=== PATIENT | female | born 1995 | race Two or more races ===

== ENCOUNTER 2019-05-09 14:37 | Inpatient (IN) | payer OTHER ==
[2019-05-09] MEDS ORDERED: Sodium Chloride 0.9% 2.5 ML Syringe FLUSH PRN (15:01)
[2019-05-09] MEDS ORDERED: Sodium Chloride 0.9% 10 ML Syringe FLUSH PRN (15:01)
[2019-05-09] MEDS ORDERED: Nalbuphine 10 MG/1 ML Vial IVPUSH PRN (15:01)
[2019-05-09] MEDS ORDERED: Misoprostol 200 MCG Tab PO PRN (15:01)
[2019-05-09] MEDS ORDERED: Sodium Chloride 0.9% 10 ML SDV IV PRN (15:01)
[2019-05-09] MEDS ORDERED: Lidocaine 1% 50 ML MDV INJECT PRN (15:01)
[2019-05-09] MEDS ORDERED: Methylergonovine 0.2 MG/1 ML Amp IM PRN (15:01)
[2019-05-09] MEDS ORDERED: Water For Irrigation,Sterile 1,000 ML Container IRR PRN (15:01)
[2019-05-09] MEDS ORDERED: Carboprost Tromethamine 250 MCG/1 ML Amp IM PRN (15:01)
[2019-05-09] MEDS ORDERED: Tranexamic Acid 1,000 MG in Sodium Chloride 0.9% 100 ML IV PRN (15:01)
[2019-05-09] MEDS ORDERED: Butorphanol 1 MG/ML SDV IVPUSH PRN (15:01)
[2019-05-09] MEDS ORDERED: Oxytocin/0.9 % Sodium Chloride 30 UNIT/500 ML BAG IV SCH (15:15)
[2019-05-09] MEDS: Lactated Ringers 1,000 ML IV SCH ×2 (18:20→19:36)
[2019-05-09] MEDS ORDERED: fentaNYL 100 MCG/2 ML SDV ONE (19:20)
[2019-05-09] MEDS ORDERED: Ropivacaine 0.2% 2 MG/ML 20 ML SDV ONE (19:20)
--- NOTE | 2019-05-09 20:14 | PCM.PREANE ---
Preanesthetic Assessment - Anesthesia/Transfusion/Family Hx Anesthesia History: Prior Anesthesia Without Reaction Family History of Anesthesia Reaction: No Transfusion History: No Prior Transfusion(s) Intubation History: Unknown - Review of Systems General: No Symptoms Pulmonary: No Symptoms Gastrointestinal: No Symptoms Neurological: No Symptoms Other: Reports: None - Physical Assessment Pulse: 85 O2 Sat by Pulse Oximetry: 99 Respiratory Rate: 22 Blood Pressure: 148/72 Temperature: 37 F Height: 5 ft 9 in Weight: 116.12 kg ASA Class: 2E Mental Status: Alert & Oriented x3 Airway Class: Mallampati = 2 Dentition: Reports: Normal Dentition ROM/Head Extension: Full Lungs: Clear to Auscultation, Normal Respiratory Effort Cardiovascular: Regular Rate, Regular Rhythm - Lab Values: Laboratory Last Values WBC 12.57 K/uL (4.0-11.0) H 05/09/19 15:22 RBC 4.53 M/uL (4.30-5.90) 05/09/19 15:22 Hgb 12.8 g/dL (12.0-16.0) 05/09/19 15:22 Hct 38.5 % (36.0-46.0) 05/09/19 15:22 MCV 85.0 fL (80.0-98.0) 05/09/19 15:22 MCH 28.3 pg (27.0-32.0) 05/09/19 15:22 MCHC 33.2 g/dL (31.0-37.0) 05/09/19 15:22 RDW Std Deviation 42.5 fl (28.0-62.0) 05/09/19 15:22 RDW Coeff of [place] 14 % (11.0-15.0) 05/09/19 15:22 Plt Count 150 K/uL (150-400) 05/09/19 15:22 MPV 11.40 fL (7.40-12.00) 05/09/19 15:22 Nucleated RBC % 0.0 /100WBC 05/09/19 15:22 Nucleated RBCs # 0 K/uL 05/09/19 15:22 INR 0.90 05/09/19 15:22 APTT 24.8 SEC (18.6-31.3) 05/09/19 15:22 Fibrinogen 451 mg/dL (215-411) H 05/09/19 15:22 Blood Type A NEGATIVE 05/09/19 15:22 Antibody Screen NEGATIVE 05/09/19 15:22 - Allergies Allergies/Adverse Reactions: Allergies Allergy/AdvReac Type Severity Reaction Status Date / Time Latex, Natural Rubber Allergy Itching Verified 07/06/16 19:58 - Blood Blood Available: No Product(s) Available: None - Anesthesia Plan Pre-Op Medication Ordered: None - Acknowledgements Anesthesia Type Planned: Epidural Pt an Appropriate Candidate for the Planned Anesthesia: Yes Alternatives and Risks of Anesthesia Discussed w Pt/Guardian: Yes Pt/Guardian Understands and Agrees with Anesthesia Plan: Yes PreAnesthesia Questionnaire - Past Health History Medical/Surgical History: Denies 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: Psychiatric History: Reports: Depression - Infectious Disease History Infectious Disease History: Reports: Chicken Pox - SUBSTANCE USE Smoking Status *Q: Never Smoker Second Hand Smoke Exposure: Yes Recreational Drug Use History: No - HOME MEDS Home Medications: Home Meds Birthcontrol 1 tab PO DAILY 09/01/15 [History] - CURRENT (IN HOUSE) MEDS Current Meds: Current Medications Butorphanol Tartrate (Stadol) 1 mg IVPUSH Q1H PRN PRN Reason: Pain Last Admin: 05/09/19 18:20 Dose: 1 mg Carboprost Tromethamine (Hemabate Ds) 250 mcg IM ASDIRECTED PRN PRN Reason: Post Hemorrhage Lactated Ringer's (Ringers, Lactated) 1,000 mls @ 150 mls/hr IV ASDIRECTED [facility] Last Admin: 05/09/19 19:36 Dose: 150 mls/hr Oxytocin/Sodium Chloride (Oxytocin 30 Unit/500 Ml-Ns) 30 unit in 500 mls @ 999 mls/hr IV TITRATE RAJINDER Tranexamic Acid 1,000 mg/ (Sodium Chloride) 110 mls @ 660 mls/hr IV ONETIME PRN PRN Reason: Bleeding Lidocaine HCl (Xylocaine 1%) 50 ml INJECT ONETIME PRN PRN Reason: Laceration repair Methylergonovine Maleate (Methergine) 0.2 mg IM ASDIRECTED PRN PRN Reason: Post Hemorrhage Misoprostol (Cytotec) 200 mcg PO ONETIME PRN PRN Reason: Post Hemorrhage Nalbuphine HCl (Nubain) 10 mg IVPUSH Q1H PRN PRN Reason: Pain (severe 7-10) Sodium Chloride (Saline Flush) 10 ml FLUSH ASDIRECTED PRN PRN Reason: Keep Vein Open Sodium Chloride (Saline Flush) 2.5 ml FLUSH ASDIRECTED PRN PRN Reason: Keep Vein Open Sodium Chloride (Normal Saline) 10 ml IV ASDIRECTED PRN PRN Reason: IV Use Sterile Water (Sterile Water For Irrigation) 1,000 ml IRR ASDIRECTED PRN PRN Reason: delivery Discontinued Medications Fentanyl (Sublimaze) Confirm Administered Dose 100 mcg .ROUTE .STK-MED ONE Stop: 05/09/19 19:21 Fentanyl/Bupivacaine HCl (Xyqixwes-Fxnjr-Hr 2 Mcg/Ml-0.125%) Confirm Administered Dose 100 mls @ as directed .ROUTE .STK-MED ONE Stop: 05/09/19 19:21 Ropivacaine (Naropin 0.2%) Confirm Administered Dose 20 ml .ROUTE .STK-MED ONE Stop: 05/09/19 19:21
[2019-05-10] MEDS ORDERED: oxyCODONE 5 MG Tab PO PRN (02:04)
[2019-05-10] MEDS ORDERED: Acetaminophen 500 MG Tab PO PRN ×2 (02:04)
[2019-05-10] MEDS ORDERED: Bisacodyl 10 MG Supp RECTAL PRN (02:04)
[2019-05-10] MEDS ORDERED: Lanolin 100% Cream 7 GM Tube TOP PRN (02:04)
[2019-05-10] MEDS ORDERED: Ibuprofen 400 MG Tab PO PRN (02:04)
[2019-05-10] MEDS ORDERED: Benzocaine/Menthol 20%-0.5% Spray 78 GM Cannister TOP PRN (02:04)
[2019-05-10] MEDS ORDERED: Witch Hazel Medicated Pads 40/Jar TOP PRN (02:04)
--- NOTE | 2019-05-10 02:09 | PCM.DEL ---
L & D Note - General Info Date of Service: 05/10/19 Mother's Due Date: 05/16/19 - Delivery Note Labor: Spontaneous Delivery Outcome: Livebirth Infant Delivery Method: Spontaneous Vaginal Delivery-Single Presentation: Left Occiput Anterior (KUMAR) Nuchal Cord: None Anesthesia Type: Epidural Amniotic Fluid Description: Meconium Stained Episiotomy Type: None Laceration: 1st Degree, Labial Suture type: Other (monocryl ) Suture size: 2-0 Placenta: Intact Cord: 3 Vessels Estimated Blood Loss: 350 Score 1 min: 8 Score 5 min: 9 Delivery Comments (Free Text/Narrative):: Live female delivered at 120am , 8/9 weight 3680g - General Info Date of Service: 05/10/19 - Patient Data Vitals - Most Recent: Last Vital Signs Temp 2.7 C L 05/09/19 20:14 Pulse 85 05/09/19 20:14 Resp 22 H 05/09/19 20:14 BP 148/72 H 05/09/19 20:14 Pulse Ox 99 05/09/19 20:14 Weight - Most Recent: 116.12 kg Lab Results Last 24 Hours: Laboratory Results - last 24 hr 05/09/19 05/09/19 05/09/19 Range/Units 15:22 15:22 15:22 WBC 12.57 H (4.0-11.0) K/uL RBC 4.53 (4.30-5.90) M/uL Hgb 12.8 (12.0-16.0) g/dL Hct 38.5 (36.0-46.0) % MCV 85.0 (80.0-98.0) fL MCH 28.3 (27.0-32.0) pg MCHC 33.2 (31.0-37.0) g/dL RDW Std Deviation 42.5 (28.0-62.0) fl RDW Coeff of [place] 14 (11.0-15.0) % Plt Count 150 (150-400) K/uL MPV 11.40 (7.40-12.00) fL Nucleated RBC % 0.0 /100WBC Nucleated RBCs # 0 K/uL INR 0.90 APTT 24.8 (18.6-31.3) SEC Fibrinogen 451 H (215-411) mg/dL Blood Type A NEGATIVE Antibody Screen NEGATIVE Med Orders - Current: Current Medications Carboprost Tromethamine (Hemabate Ds) 250 mcg IM ASDIRECTED PRN PRN Reason: Post Hemorrhage Lactated Ringer's (Ringers, Lactated) 1,000 mls @ 150 mls/hr IV ASDIRECTED RAJINDER Last Admin: 05/09/19 19:36 Dose: 150 mls/hr Oxytocin/Sodium Chloride (Oxytocin 30 Unit/500 Ml-Ns) 30 unit in 500 mls @ 999 mls/hr IV TITRATE RAJINDER Last Admin: 05/10/19 01:35 Dose: 999 mls/hr Tranexamic Acid 1,000 mg/ (Sodium Chloride) 110 mls @ 660 mls/hr IV ONETIME PRN PRN Reason: Bleeding Methylergonovine Maleate (Methergine) 0.2 mg IM ASDIRECTED PRN PRN Reason: Post Hemorrhage Misoprostol (Cytotec) 200 mcg PO ONETIME PRN PRN Reason: Post Hemorrhage Sodium Chloride (Saline Flush) 10 ml FLUSH ASDIRECTED PRN PRN Reason: Keep Vein Open Sodium Chloride (Saline Flush) 2.5 ml FLUSH ASDIRECTED PRN PRN Reason: Keep Vein Open Sodium Chloride (Normal Saline) 10 ml IV ASDIRECTED PRN PRN Reason: IV Use Discontinued Medications Butorphanol Tartrate (Stadol) 1 mg IVPUSH Q1H PRN PRN Reason: Pain Last Admin: 05/09/19 18:20 Dose: 1 mg Fentanyl (Sublimaze) Confirm Administered Dose 100 mcg .ROUTE .STK-MED ONE Stop: 05/09/19 19:21 Fentanyl/Bupivacaine HCl (Abdxduwk-Mdgln-Dh 2 Mcg/Ml-0.125%) Confirm Administered Dose 100 mls @ as directed .ROUTE .STK-MED ONE Stop: 05/09/19 19:21 Lidocaine HCl (Xylocaine 1%) 50 ml INJECT ONETIME PRN PRN Reason: Laceration repair Last Admin: 05/10/19 01:36 Dose: 50 ml Nalbuphine HCl (Nubain) 10 mg IVPUSH Q1H PRN PRN Reason: Pain (severe 7-10) Ropivacaine (Naropin 0.2%) Confirm Administered Dose 20 ml .ROUTE .STK-MED ONE Stop: 05/09/19 19:21 Sterile Water (Sterile Water For Irrigation) 1,000 ml IRR ASDIRECTED PRN PRN Reason: delivery - Problem List & Annotations (1) Vaginal delivery SNOMED Code(s): 162451602 Code(s): O80 - ENCOUNTER FOR FULL-TERM UNCOMPLICATED DELIVERY Status: Acute Current Visit: Yes - Problem List Review Problem List Initiated/Reviewed/Updated: Yes - My Orders Last 24 Hours: My Active Orders 05/09/19 15:01 Patient Status [ADT] Routine Heart Tones [RC] CONTINUOUS Non Stress Test [RC] PER UNIT ROUTINE May Shower [RC] ASDIRECTED Notify Provider [RC] PRN Up ad Gwendolyn [RC] ASDIRECTED Vaginal Exam [RC] PRN Vital Signs [RC] PER UNIT ROUTINE Carboprost Tromethamine [Hemabate DS] 250 mcg IM ASDIRECTED PRN Methylergonovine [Methergine] 0.2 mg IM ASDIRECTED PRN Sodium Chloride 0.9% [Normal Saline] 10 ml IV ASDIRECTED PRN Sodium Chloride 0.9% [Saline Flush] 10 ml FLUSH ASDIRECTED PRN Sodium Chloride 0.9% [Saline Flush] 2.5 ml FLUSH ASDIRECTED PRN Tranexamic Acid [Cyklokapron] 1,000 mg Sodium Chloride 0.9% [Normal Saline] 100 ml IV ONETIME miSOPROStol [Cytotec] 200 mcg PO ONETIME PRN Peripheral IV Insertion Adult [OM.PC] Routine 05/09/19 15:15 Lactated Ringers [Ringers, Lactated] 1,000 ml IV ASDIRECTED Oxytocin/0.9 % Sodium Chloride [Oxytocin 30 Unit/500 ML-NS] 30 unit in 500 ml IV TITRATE 05/10/19 02:04 Patient Status [ADT] Routine May Shower [RC] ASDIRECTED Up ad Gwendolyn [RC] ASDIRECTED Vital Signs [RC] PER UNIT ROUTINE RHIG WORKUP, [BBK] Routine Acetaminophen [Tylenol Extra Strength] 1,000 mg PO Q4H PRN Acetaminophen [Tylenol Extra Strength] 500 mg PO Q4H PRN Benzocaine/Menthol [Dermoplast Pain Relief 20%-0.5% [place]] 78 gm TOP ASDIRECTED PRN Bisacodyl [Dulcolax] 10 mg RECTAL ONETIME PRN Docusate Sodium [Colace] 100 mg PO BID PRN Ibuprofen [Motrin] 400 mg PO Q4H PRN Ibuprofen [Motrin] 800 mg PO Q6H PRN Lanolin [Lansinoh HPA] See Dose Instructions TOP ASDIRECTED PRN Witch Emma [Tucks] 1 pad TOP ASDIRECTED PRN oxyCODONE 5 mg PO Q2H PRN Assess Lochia [WOMSER] Per Unit Routine Assess Uterine Involution [WOMSER] Per Unit Routine Peripheral IV Discontinue [OM.PC] Routine 05/10/19 02:05 BLOOD GAS ARTERIAL UMBILICAL [BG] Routine BLOOD GAS VENOUS UMBILICAL [BG] Routine 05/11/19 05:11 HEMOGLOBIN/HEMATOCRIT,HH [HEME] Timed
[2019-05-10] MEDS: Ibuprofen 800 MG Tab PO PRN ×4 (02:57→20:54)
[2019-05-10] MEDS: Docusate Sodium 100 MG Cap PO PRN ×3 (02:58→20:54)
--- NOTE | 2019-05-10 10:55 | PCM.POSTAN ---
POST ANESTHESIA ASSESSMENT - MENTAL STATUS Mental Status: Alert, Oriented - RESPIRATORY Respiratory Status: Respiratory Rate WNL, Airway Patent, O2 Saturation Stable - CARDIOVASCULAR CV Status: Pulse Rate WNL, Blood Pressure Stable - GASTROINTESTINAL GI Status: No Symptoms - POST OP HYDRATION Hydration Status: Adequate & Stable
--- NOTE | 2019-05-11 03:55 | OR ---
SURGEON: NERI THOMAS DATE OF PROCEDURE: 05/10/2019 PREOPERATIVE DIAGNOSIS: 23yo G1, P0 at 39w1d Suspected placental abruption. POSTOPERATIVE DIAGNOSIS: 23yo G1, P0 at 39w1d Suspected placental abruption. PROCEDURE PERFORMED: Normal spontaneous vaginal delivery Repair of first-degree vaginal laceration and Bilateral labial laceration. ESTIMATED BLOOD LOSS: 350. IV FLUIDS: Pitocin running. ANESTHESIA: Epidural. NOTES AND FINDINGS: Live female delivered at 1:20 a.m. scores were 8 and 9. Weight is 3680 g. BRIEF HISTORY: The patient was 39 weeks 0 day. She was complaining of bleeding and also was examined and noted to have some blood in the posterior fornix. She was also complaining of contractions As a result, the patient was counseled for augmentation of labor versus induction of labor. At this point, she was also complaining of contraction. PIH labs were done, which was pennie. She was sent to Labor and Delivery. The patient was being observed, she then made change. She was about 1 to 2 cm dilated. She became 4 cm dilated and subsequently became fully dilated. DESCRIPTION OF PROCEDURE: With the patient being fully dilated. She was encouraged to push with good pushing effort. She delivered the head subsequently by the anterior and posterior shoulder. The body of the was delivered. Delayed cord clamping was observed. The cord was clamped and cut. Then, the placenta was delivered via controlled cord traction. The perineum was inspected and noted to have a first- degree laceration, which was repaired in layers and also bilateral labial laceration which was repaired with 2-0 Monocryl. Bimanual exam was done and the cervix was sweeped and bimanual uterine massage was done. Hemostasis was noted. Normal bleeding was observed. The patient was left in the Labor and Delivery suite in stable condition. LLUVIA / LEONARDA /[id number] MTDMaciel
[2019-05-11] MEDS: Ibuprofen 800 MG Tab PO PRN ×2 (05:09→12:39)
--- NOTE | 2019-05-11 07:08 | PCM48HPAN ---
Post Anesthesia Note - EVALUATION WITHIN 48HRS OF ANESTHETIC Vital Signs in Normal Range: Yes Patient Participated in Evaluation: Yes Respiratory Function Stable: Yes Airway Patent: Yes Cardiovascular Function Stable: Yes Hydration Status Stable: Yes Pain Control Satisfactory: Yes Nausea and Vomiting Control Satisfactory: Yes Mental Status Recovered: Yes Pulse Rate: 87 SaO2: 94 Resp Rate: 16 Temperature: 97.8 F Blood Pressure: 120/68
[2019-05-11 07:42] VITALS: BP 127/71
--- NOTE | 2019-05-11 10:08 | PCM.PNPP ---
- General Info Date of Service: 05/11/19 Subjective Update: 23yo P1 s/p , ambulating , voiding and tolerating regular diet , Normal Lochia Functional Status: Reports: Pain Controlled, Tolerating Diet, Ambulating, Urinating - Review of Systems General: Reports: No Symptoms HEENT: Reports: No Symptoms Pulmonary: Reports: No Symptoms Cardiovascular: Reports: No Symptoms Gastrointestinal: Reports: No Symptoms Genitourinary: Reports: No Symptoms Musculoskeletal: Reports: No Symptoms Skin: Reports: No Symptoms Neurological: Reports: No Symptoms Psychiatric: Reports: No Symptoms - General Info Date of Service: 05/11/19 - Patient Data Vital Signs - Most Recent: Last Vital Signs Temp 36.3 C 05/11/19 07:18 Pulse 84 05/11/19 07:18 Resp 17 05/11/19 07:18 BP 127/71 05/11/19 07:18 Pulse Ox 97 05/11/19 07:18 Weight - Most Recent: 116.12 kg Lab Results - Last 24 Hours: Laboratory Results - last 24 hr 05/11/19 Range/Units 05:23 Hgb 11.3 L (12.0-16.0) g/dL Hct 35.1 L (36.0-46.0) % Med Orders - Current: Current Medications Acetaminophen (Tylenol Extra Strength) 500 mg PO Q4H PRN PRN Reason: Pain Acetaminophen (Tylenol Extra Strength) 1,000 mg PO Q4H PRN PRN Reason: Pain Last Admin: 05/10/19 17:24 Dose: 1,000 mg Benzocaine/Menthol (Dermoplast Pain Relief 20%-0.5% [place]) 78 gm TOP ASDIRECTED PRN PRN Reason: Perineal Comfort Measure Last Admin: 05/10/19 04:56 Dose: 1 canister Bisacodyl (Dulcolax) 10 mg RECTAL ONETIME PRN PRN Reason: Constipation Carboprost Tromethamine (Hemabate Ds) 250 mcg IM ASDIRECTED PRN PRN Reason: Post Hemorrhage Docusate Sodium (Colace) 100 mg PO BID PRN PRN Reason: Constipation Last Admin: 05/10/19 20:54 Dose: 100 mg Emollient Ointment (Lansinoh Hpa) 0 gm TOP ASDIRECTED PRN PRN Reason: Sore Nipples Lactated Ringer's (Ringers, Lactated) 1,000 mls @ 150 mls/hr IV ASDIRECTED [facility] Last Admin: 05/09/19 19:36 Dose: 150 mls/hr Oxytocin/Sodium Chloride (Oxytocin 30 Unit/500 Ml-Ns) 30 unit in 500 mls @ 999 mls/hr IV TITRATE [facility] Last Admin: 05/10/19 01:35 Dose: 999 mls/hr Tranexamic Acid 1,000 mg/ (Sodium Chloride) 110 mls @ 660 mls/hr IV ONETIME PRN PRN Reason: Bleeding Ibuprofen (Motrin) 400 mg PO Q4H PRN PRN Reason: Pain Ibuprofen (Motrin) 800 mg PO Q6H PRN PRN Reason: Pain Last Admin: 05/11/19 05:09 Dose: 800 mg Methylergonovine Maleate (Methergine) 0.2 mg IM ASDIRECTED PRN PRN Reason: Post Hemorrhage Misoprostol (Cytotec) 200 mcg PO ONETIME PRN PRN Reason: Post Hemorrhage Oxycodone HCl (Oxycodone) 5 mg PO Q2H PRN PRN Reason: Pain Sodium Chloride (Saline Flush) 10 ml FLUSH ASDIRECTED PRN PRN Reason: Keep Vein Open Sodium Chloride (Saline Flush) 2.5 ml FLUSH ASDIRECTED PRN PRN Reason: Keep Vein Open Sodium Chloride (Normal Saline) 10 ml IV ASDIRECTED PRN PRN Reason: IV Use Witch Emma (Tucks) 1 pad TOP ASDIRECTED PRN PRN Reason: comfort care Last Admin: 05/10/19 04:57 Dose: 1 tub Discontinued Medications Butorphanol Tartrate (Stadol) 1 mg IVPUSH Q1H PRN PRN Reason: Pain Last Admin: 05/09/19 18:20 Dose: 1 mg Fentanyl (Sublimaze) Confirm Administered Dose 100 mcg .ROUTE .STK-MED ONE Stop: 05/09/19 19:21 Fentanyl/Bupivacaine HCl (Zxxybmuy-Pzfqc-Cr 2 Mcg/Ml-0.125%) Confirm Administered Dose 100 mls @ as directed .ROUTE .STK-MED ONE Stop: 05/09/19 19:21 Lidocaine HCl (Xylocaine 1%) 50 ml INJECT ONETIME PRN PRN Reason: Laceration repair Last Admin: 05/10/19 01:36 Dose: 50 ml Nalbuphine HCl (Nubain) 10 mg IVPUSH Q1H PRN PRN Reason: Pain (severe 7-10) Ropivacaine (Naropin 0.2%) Confirm Administered Dose 20 ml .ROUTE .STK-MED ONE Stop: 05/09/19 19:21 Sterile Water (Sterile Water For Irrigation) 1,000 ml IRR ASDIRECTED PRN PRN Reason: delivery - Infant Interaction Support Person: Mother, Significant Other - Recovery Exam Fundal Tone: Firm Fundal Level: At Umbilicus Fundal Placement: Midline Lochia Amount: Scant Lochia Color: Rubra/Red Perineum Description: Intact, Minimal Bruising/Swelling Other Perinuem Description: first degree laceration and bilateral labial tear, right side not repaired Episiotomy/Laceration: Approximated Bladder Status: Voiding Urinary Elimination: Voided - Exam General: Alert HEENT: Pupils Equal Neck: Supple Lungs: Clear to Auscultation Cardiovascular: Regular Rate, Regular Rhythm GI/Abdominal Exam: Normal Bowel Sounds Extremities: Normal Inspection Neurological: No New Focal Deficit Psy/Mental Status: Alert - Problem List & Annotations (1) Vaginal delivery SNOMED Code(s): 090345839 Code(s): O80 - ENCOUNTER FOR FULL-TERM UNCOMPLICATED DELIVERY Status: Acute Current Visit: Yes - Problem List Review Problem List Initiated/Reviewed/Updated: No - Assessment Assessment:: 23yo P1 s/p PPD1 ,normal lochia , - Plan Plan:: Routine Discharge home today
--- NOTE | 2019-05-11 10:12 | PCM.DCSUM1 ---
Discharge Summary - Hospital Course Brief History: 23yo P1 s/p PPD1 , Diagnosis: Stroke: No - Discharge Data Discharge Date: 05/11/19 Discharge Disposition: Home, Self-Care 01 Condition: Good - Discharge Diagnosis/Problem(s) (1) Vaginal delivery SNOMED Code(s): 031253177 ICD Code: O80 - ENCOUNTER FOR FULL-TERM UNCOMPLICATED DELIVERY Status: Acute Current Visit: Yes - Patient Summary/Data Operative Procedure(s) Performed: - Patient Instructions Diet: Usual Diet as Tolerated Activity: As Tolerated Driving: Do Not Drive Notify Provider of: Fever, Increased Pain, Swelling and Redness, Drainage - Discharge Plan Home Medications: Home Meds Birthcontrol 1 tab PO DAILY 09/01/15 [History] Referrals: [facility] [Outside] Terrence Carr MD [Family Provider] - 06/27/19 2:15 pm - Discharge Summary/Plan Comment DC Time >30 min.: No - General Info Date of Service: 05/11/19 Subjective Update: 23yo P1 s/p , ambulating , voiding and tolerating regular diet , Normal Lochia - Patient Data Vitals - Most Recent: Last Vital Signs Temp 36.3 C 05/11/19 07:18 Pulse 84 05/11/19 07:18 Resp 17 05/11/19 07:18 BP 127/71 05/11/19 07:18 Pulse Ox 97 05/11/19 07:18 Weight - Most Recent: 116.12 kg Lab Results - Last 24 hrs: Laboratory Results - last 24 hr 05/11/19 Range/Units 05:23 Hgb 11.3 L (12.0-16.0) g/dL Hct 35.1 L (36.0-46.0) % Med Orders - Current: Current Medications Acetaminophen (Tylenol Extra Strength) 500 mg PO Q4H PRN PRN Reason: Pain Acetaminophen (Tylenol Extra Strength) 1,000 mg PO Q4H PRN PRN Reason: Pain Last Admin: 05/10/19 17:24 Dose: 1,000 mg Benzocaine/Menthol (Dermoplast Pain Relief 20%-0.5% [place]) 78 gm TOP ASDIRECTED PRN PRN Reason: Perineal Comfort Measure Last Admin: 05/10/19 04:56 Dose: 1 canister Bisacodyl (Dulcolax) 10 mg RECTAL ONETIME PRN PRN Reason: Constipation Carboprost Tromethamine (Hemabate Ds) 250 mcg IM ASDIRECTED PRN PRN Reason: Post Hemorrhage Docusate Sodium (Colace) 100 mg PO BID PRN PRN Reason: Constipation Last Admin: 05/10/19 20:54 Dose: 100 mg Emollient Ointment (Lansinoh Hpa) 0 gm TOP ASDIRECTED PRN PRN Reason: Sore Nipples Lactated Ringer's (Ringers, Lactated) 1,000 mls @ 150 mls/hr IV ASDIRECTED [facility]JINDRE Last Admin: 05/09/19 19:36 Dose: 150 mls/hr Oxytocin/Sodium Chloride (Oxytocin 30 Unit/500 Ml-Ns) 30 unit in 500 mls @ 999 mls/hr IV TITRATE [facility] Last Admin: 05/10/19 01:35 Dose: 999 mls/hr Tranexamic Acid 1,000 mg/ (Sodium Chloride) 110 mls @ 660 mls/hr IV ONETIME PRN PRN Reason: Bleeding Ibuprofen (Motrin) 400 mg PO Q4H PRN PRN Reason: Pain Ibuprofen (Motrin) 800 mg PO Q6H PRN PRN Reason: Pain Last Admin: 05/11/19 05:09 Dose: 800 mg Methylergonovine Maleate (Methergine) 0.2 mg IM ASDIRECTED PRN PRN Reason: Post Hemorrhage Misoprostol (Cytotec) 200 mcg PO ONETIME PRN PRN Reason: Post Hemorrhage Oxycodone HCl (Oxycodone) 5 mg PO Q2H PRN PRN Reason: Pain Sodium Chloride (Saline Flush) 10 ml FLUSH ASDIRECTED PRN PRN Reason: Keep Vein Open Sodium Chloride (Saline Flush) 2.5 ml FLUSH ASDIRECTED PRN PRN Reason: Keep Vein Open Sodium Chloride (Normal Saline) 10 ml IV ASDIRECTED PRN PRN Reason: IV Use Witch Emma (Tucks) 1 pad TOP ASDIRECTED PRN PRN Reason: comfort care Last Admin: 05/10/19 04:57 Dose: 1 tub Discontinued Medications Butorphanol Tartrate (Stadol) 1 mg IVPUSH Q1H PRN PRN Reason: Pain Last Admin: 05/09/19 18:20 Dose: 1 mg Fentanyl (Sublimaze) Confirm Administered Dose 100 mcg .ROUTE .STK-MED ONE Stop: 05/09/19 19:21 Fentanyl/Bupivacaine HCl (Ymfejpda-Rpjpn-Mv 2 Mcg/Ml-0.125%) Confirm Administered Dose 100 mls @ as directed .ROUTE .STK-MED ONE Stop: 05/09/19 19:21 Lidocaine HCl (Xylocaine 1%) 50 ml INJECT ONETIME PRN PRN Reason: Laceration repair Last Admin: 05/10/19 01:36 Dose: 50 ml Nalbuphine HCl (Nubain) 10 mg IVPUSH Q1H PRN PRN Reason: Pain (severe 7-10) Ropivacaine (Naropin 0.2%) Confirm Administered Dose 20 ml .ROUTE .STSpinzo-MED ONE Stop: 05/09/19 19:21 Sterile Water (Sterile Water For Irrigation) 1,000 ml IRR ASDIRECTED PRN PRN Reason: delivery *Q Meaningful Use (DIS) - VTE *Q VTE Criteria *Q: VTE with ambulation
== END 2019-05-11 13:05 | disposition home or self-care (01) | DRG 807 ==
LOC: MW.OBCHECK 14:37 → MW.OB 15:01 → OBSVTOIN 05-10 01:20 → MW.OB 05-10 09:17
PROVIDERS: ADMIT Obstetrics & Gynecology; ATTEND Obstetrics & Gynecology
PROC: 10E0XZZ Delivery of Products of Conception, External Approach (ICD-10-PCS; principal; 2019-05-10)
PROC: 10907ZC Drainage of Amniotic Fluid, Therapeutic from Products of Conception, Via Natural or Artificial Opening (ICD-10-PCS; 2019-05-10)
PROC: 4A1HXCZ Monitoring of Products of Conception, Cardiac Rate, External Approach (ICD-10-PCS; 2019-05-10)
DX: O45.93 Premature separation of placenta, unspecified, third trimester (principal); Z37.0 Single live birth; O77.0 Labor and delivery complicated by meconium in amniotic fluid; O70.0 First degree perineal laceration during delivery; O76 Abnormality in fetal heart rate and rhythm complicating labor and delivery; Z3A.39 39 weeks gestation of pregnancy
CPT/HCPCS: 36415; 51702; 59025; 59409; 82803; 85014; 85018; 85027; 85384; 85610; 85730; 86850; 86900; 86901; A9270-GY; J0595; J2001; J2590; J7120

== ENCOUNTER 2023-06-25 07:59 | Inpatient (IN) | payer BC, OTHER ==
[2023-06-25] MEDS ORDERED: Methylergonovine 0.2 MG/1 ML Amp IM PRN (08:17)
[2023-06-25] MEDS ORDERED: Tranexamic Acid 1,000 MG in Sodium Chloride 0.9% 100 ML IV PRN (08:17)
[2023-06-25] MEDS ORDERED: Sodium Chloride 0.9% 10 ML Syringe FLUSH PRN (08:17)
[2023-06-25] MEDS ORDERED: Butorphanol 1 MG/ML SDV IVPUSH PRN (08:17)
[2023-06-25] MEDS ORDERED: Lidocaine 1% 50 ML MDV INJECT PRN (08:17)
[2023-06-25] MEDS ORDERED: Sodium Chloride 0.9% 20 ML SDV IV PRN (08:17)
[2023-06-25] MEDS ORDERED: Misoprostol 200 MCG Tab PO PRN (08:17)
[2023-06-25] MEDS ORDERED: Water For Irrigation,Sterile 1,000 ML Container IRR PRN (08:17)
[2023-06-25] MEDS ORDERED: Sodium Chloride 0.9% 2.5 ML Syringe FLUSH PRN (08:17)
[2023-06-25] MEDS ORDERED: Carboprost Tromethamine 250 MCG/1 mL Vial IM PRN (08:17)
[2023-06-25] MEDS ORDERED: Lactated Ringers 1,000 ML IV SCH (08:30)
[2023-06-25] MEDS ORDERED: Oxytocin/0.9 % Sodium Chloride 30 UNIT/500 ML BAG IV SCH (08:30)
[2023-06-25] MEDS ORDERED: Lidocaine 1% 50 ML MDV ONE (08:50)
[2023-06-25 09:12] LABS: HEMATOCRIT 38.8 % (36.0-46.0); HEMOGLOBIN 13.1 g/dL (12.0-16.0); MEAN CORPUSCULAR HEMOGLOBIN 28.2 pg (27.0-32.0); MEAN CORPUSCULAR HGB CONC 33.8 g/dL (31.0-37.0); MEAN CORPUSCULAR VOLUME 83.6 fL (80.0-98.0); MEAN PLATELET VOLUME 11.1 fL (7.40-12.00); RED BLOOD CELL COUNT 4.64 M/uL (4.30-5.90); WHITE BLOOD CELL COUNT,WBC 8.56 K/uL (4.0-11.0)
[2023-06-25] MEDS ORDERED: Lanolin 100% Cream 7 GM Tube TOP PRN (11:03)
[2023-06-25] MEDS ORDERED: Bisacodyl 10 MG Supp RECTAL PRN (11:03)
[2023-06-25] MEDS ORDERED: Witch Hazel Medicated Pads 40/Jar TOP PRN (11:03)
[2023-06-25] MEDS ORDERED: oxyCODONE 5 MG Tab PO PRN (11:03)
[2023-06-25] MEDS ORDERED: Acetaminophen 500 MG Tab PO PRN ×2 (11:03)
[2023-06-25] MEDS ORDERED: Benzocaine/Menthol 20%-0.5% Spray 78 GM Cannister TOP PRN (11:03)
[2023-06-25] MEDS ORDERED: Docusate Sodium 100 MG Cap PO PRN (11:03)
[2023-06-25] MEDS ORDERED: Ibuprofen 400 MG Tab PO PRN (11:03)
[2023-06-25] MEDS: Ibuprofen 800 MG Tab PO PRN ×2 (12:27→20:52)
[2023-06-26 05:42] LABS: HEMATOCRIT 36.3 % (36.0-46.0); HEMOGLOBIN 11.6 g/dL (12.0-16.0)
[2023-06-26] MEDS: Ibuprofen 800 MG Tab PO PRN (09:29)
== END 2023-06-26 11:11 | disposition home or self-care (01) | DRG 560 ==
LOC: MW.OBCHECK 07:59 → MW.OB 08:00 → OBSVTOIN 08:27 → MW.OBCHECK 08:51 → MW.OB 08:51 → MW.OBCHECK 10:37 → MW.OB 10:37
PROVIDERS: ADMIT Obstetrics & Gynecology; ATTEND Obstetrics & Gynecology
PROC: 10E0XZZ Delivery of Products of Conception, External Approach (ICD-10-PCS; principal; 2023-06-25)
PROC: 0KQM0ZZ Repair Perineum Muscle, Open Approach (ICD-10-PCS; 2023-06-25)
PROC: 3E0334Z Introduction of Serum, Toxoid and Vaccine into Peripheral Vein, Percutaneous Approach (ICD-10-PCS; 2023-06-26)
DX: O42.02 Full-term premature rupture of membranes, onset of labor within 24 hours of rupture (principal); O99.214 Obesity complicating childbirth; O70.1 Second degree perineal laceration during delivery; O62.3 Precipitate labor; O26.893 Other specified pregnancy related conditions, third trimester; Z37.0 Single live birth; Z67.11 Type A blood, Rh negative; Z3A.40 40 weeks gestation of pregnancy
CPT/HCPCS: 36415; 85014; 85018; 85027; 85460; 86592; 86850; 86900; 86901; A9270-GY; J2001; J2590; J2790; J3490